=== PATIENT | female | born 1980 | race Caucasian/White ===

== ENCOUNTER 2016-11-27 12:27 | Emergency (ER) | payer OTHER ==
[2016-11-27] MEDS ORDERED: oxyCOD/ACETAMIN 5 MG/325 MG TABLET PO STA (15:12)
[2016-11-27] MEDS ORDERED: DEXAMETHASONE 10 MG/ML VIAL PO STA (15:12)
[2016-11-27] MEDS ORDERED: LIDOCAINE PATCH 5% TOP STA (15:12)
[2016-11-27] MEDS ORDERED: LIDOCAINE PATCH 5% TOP ONE (15:15)
[2016-11-27] MEDS ORDERED: DEXAMETHASONE 10 MG/ML VIAL ONE (15:15)
[2016-11-27] MEDS ORDERED: oxyCOD/ACETAMIN 5 MG/325 MG TABLET PO ONE (15:15)
== END 2016-11-27 15:29 | disposition home or self-care (01) ==
DX: M54.5 Low back pain (principal)
CPT/HCPCS: 99283; A9270

== ENCOUNTER 2017-02-22 04:03 | Emergency (ER) | payer OTHER ==
[2017-02-22] MEDS ORDERED: DOCUSATE SODIUM 100 MG CAPSULE PO STA (04:28)
[2017-02-22] MEDS ORDERED: KETOROLAC 60 MG/2 ML VIAL IVP STA (04:28)
[2017-02-22] MEDS ORDERED: HYDROmorphone 1 MG/ML SYRINGE IVP STA (04:28)
[2017-02-22] MEDS ORDERED: SALINE ENEMA 133 ML BOTTLE RC STA (04:28)
[2017-02-22] MEDS ORDERED: HYDROmorphone 1 MG/ML SYRINGE ONE (04:35)
[2017-02-22] MEDS ORDERED: DOCUSATE SODIUM 100 MG CAPSULE PO ONE (04:35)
[2017-02-22] MEDS ORDERED: KETOROLAC 30 MG/ML VIAL ONE (04:35)
[2017-02-22] MEDS ORDERED: ONDANSETRON 4 MG/2 ML VIAL IVP STA ×2 (04:48→06:32)
[2017-02-22] MEDS ORDERED: ONDANSETRON 4 MG/2 ML VIAL ONE ×2 (04:48→06:32)
== END 2017-02-22 06:42 | disposition home or self-care (01) ==
DX: R10.30 Lower abdominal pain, unspecified (principal); K59.00 Constipation, unspecified; D64.9 Anemia, unspecified
CPT/HCPCS: 36415; 80053; 81001; 81025; 83690; 85025; 96374; 96375; 96376; 99283; 99284; A9270; J1170